=== PATIENT | female | born 1970 | race Caucasian/White ===

== ENCOUNTER 2020-05-13 05:07 | Inpatient (IN) | payer OTHER ==
[~2020-05-13 05:07] MED LIST: ASA PO; ASPIRIN EC81 MG PO; AZITHROMYCIN250 MG PO; CRANBERRY PO; CRANBERRY500 M3 PO; FLOMAX 0.4 MG0.4 MG PO; FLOMAX0.4 MG PO; HYDROCODON-ACE1 EAC1 PO; LISINOPRIL PO; LOPRESSOR25 MG PO; METFORMIN HCL500 MG PO; METFORMIN PO; METOPROLOL PO; NORCO 5-325 TA1 EACH PO; ONDANSETRON ODT4 MG PO/SL; PAXIL PO; PAXIL10 MG PO; PERCOCET 5-3251 EACH PO; PLAVIX PO; PLAVIX75 MG PO; PRAVACHOL20 MG PO; PREVASTATIN PO; VITAMIN D3 PO; XULTOPHY 100 UNI3 ML SC; ZESTRIL5 MG PO; ZOFRAN4 MG SL
[2020-05-13 06:22] LABS: BASOPHIL 0.9 % (0-2); EOSINOPHIL 2.9 % (0-5); HCT 41.4 % (37.0-47.0); HGB 15.5 g/dl (12.5-16.0); LYMPHOCYTE 21.5 % (15-48); MCH 29.7 pg (25.0-31.0); MCHC 37.4 g/dL (32.0-36.0); MCV 79.3 fL (78.0-100.0); MONOCYTE 7.7 % (0-12); MPV 11.2 fL (6.0-9.5); NEUTROPHIL 66.1 % (41-80); NRBC 0; PLT 253 K/uL (150-400); RBC 5.22 M/uL (4.20-5.40); RDW 13.7 % (11.5-14.0); WBC 11.6 K/uL (4.0-10.5)
[2020-05-13 06:57] LABS: ALBUMIN 2.9 g/dL (3.4-5.0); ALKALINE PHOSHATASE 232 U/L (46-116); ALT <6 U/L (14-59); BILIRUBIN - TOTAL 1.1 mg/dL (0.2-1.0); BUN 11 mg/dL (7-18); BUN/CREAT RATIO (CALC) 26.2 RATIO; CHLORIDE 91 mmol/L (98-107); CO2 (BICARBONATE) 17 mmol/L (21-32); CREATININE 0.42 mg/dL (0.51-0.95); GLOBULIN (CALCULATION) 4.4 g/dL; LIPASE >2250 U/L (73-393); POTASSIUM 3.9 mmol/L (3.5-5.1); TOTAL PROTEIN 7.3 g/dL (6.4-8.2)
[2020-05-13 06:58] LABS: GLUCOSE 538 mg/dL (74-106)
[2020-05-13 07:00] LABS: AST <5 U/L (15-37)
[2020-05-13 07:03] LABS: CORONAVIRUS 2019 SARS-COV-2 NEGATIVE (NEGATIVE); INFLUENZA A NAA NEGATIVE (NEGATIVE)
[2020-05-13 11:49] LABS: BILIRUBIN NEGATIVE (NEGATIVE); BLOOD NEGATIVE Ery/uL (NEGATIVE); CLARITY CLEAR (CLEAR); COLOR YELLOW (YELLOW); GLUCOSE (U) 2+ mg/dL (NORMAL); LEUKOCYTES NEGATIVE Leu/uL (NEGATIVE); NITRITE NEGATIVE (NEGATIVE); PROTEIN NEGATIVE (NEGATIVE); SPECIFIC GRAVITY 1.025 (1.001-1.030); UROBILINOGEN 0.2 mg/dL (0.2-1.0)
[2020-05-13 11:58] LABS: CHOLESTEROL 409 mg/dL (<200); HDL 26 mg/dL (40-60); LDL - DIRECT 60 mg/dL (<100); TRIGLYCERIDES >2000 mg/dL (<150)
[2020-05-13] MEDS ORDERED: NORVASC5 MG PO (12:14)
[2020-05-13] MEDS ORDERED: COZAAR50 MG PO (12:15)
[2020-05-13] MEDS ORDERED: TRAZODONE 50MG50 MG PO (12:16)
[2020-05-14 05:38] LABS: HCT 41.4 % (37.0-47.0); HGB 14.1 g/dl (12.5-16.0); MCH 27.5 pg (25.0-31.0); MCHC 34.1 g/dL (32.0-36.0); MCV 80.7 fL (78.0-100.0); MPV 11.6 fL (6.0-9.5); RBC 5.13 M/uL (4.20-5.40); WBC 7.2 K/uL (4.0-10.5)
[2020-05-14 05:59] LABS: BUN/CREAT RATIO (CALC) 21.3 RATIO; CREATININE 0.47 mg/dL (0.51-0.95); POTASSIUM 4.6 mmol/L (3.5-5.1)
--- NOTE | 2020-05-14 07:37 | NUR ---
ORIENTATING SHELBY NELSON, VERIFES ALL DOCUMENTATION IS TRUE AND ACCURATE. DID ASSESSMENTS AND MEDICATION PASSES WITH SHELBY NELSON
[2020-05-15 14:46] LABS: CHOLESTEROL 374 mg/dL (<200); HDL 21 mg/dL (40-60); LDL - DIRECT 86 mg/dL (<100); LIPASE 2013 U/L (73-393); TRIGLYCERIDES 941 mg/dL (<150)
[2020-05-16 05:46] LABS: HCT 37.2 % (37.0-47.0); HGB 12.3 g/dl (12.5-16.0); MCH 26.4 pg (25.0-31.0); MCHC 33.1 g/dL (32.0-36.0); MCV 79.8 fL (78.0-100.0); RBC 4.66 M/uL (4.20-5.40); RDW 14.4 % (11.5-14.0); WBC 6.1 K/uL (4.0-10.5)
[2020-05-16 06:18] LABS: CREATININE 0.45 mg/dL (0.51-0.95); POTASSIUM 3.1 mmol/L (3.5-5.1)
--- NOTE | 2020-05-16 18:00 | NUR ---
DR CAMERON SAID IT WAS OK TO DO Q2HRS ON FINGER STICKS
[2020-05-17 05:34] LABS: BASOPHIL 0.6 % (0-2); EOSINOPHIL 0.9 % (0-5); HCT 37.7 % (37.0-47.0); HGB 12.5 g/dl (12.5-16.0); LYMPHOCYTE 15.8 % (15-48); MCHC 33.2 g/dL (32.0-36.0); MCV 78.5 fL (78.0-100.0); MONOCYTE 12.6 % (0-12); MPV 10.6 fL (6.0-9.5); NEUTROPHIL 68.8 % (41-80); NRBC 0; PLT 229 K/uL (150-400); RDW 14.2 % (11.5-14.0); WBC 5.3 K/uL (4.0-10.5)
[2020-05-17 05:55] LABS: ALBUMIN 1.9 g/dL (3.4-5.0); BILIRUBIN - TOTAL 0.3 mg/dL (0.2-1.0); CREATININE 0.47 mg/dL (0.51-0.95); GLOBULIN (CALCULATION) 4.6 g/dL; POTASSIUM 2.7 mmol/L (3.5-5.1); TOTAL PROTEIN 6.5 g/dL (6.4-8.2)
[2020-05-17] MEDS ORDERED: LOPID600 MG PO (10:50)
[2020-05-17] MEDS ORDERED: FENOFIBRATE160 MG PO (10:50)
[2020-05-17] MEDS ORDERED: PRAVACHOL20 MG PO (10:51)
--- NOTE | 2020-05-17 11:56 | NUR ---
PATIENT TRANSFERRED BY CHAIR TO 216. REPORT GIVEN TO
[2020-05-18 05:50] LABS: BASOPHIL 0.7 % (0-2); EOSINOPHIL 0.8 % (0-5); HCT 40.7 % (37.0-47.0); HGB 13.2 g/dl (12.5-16.0); LYMPHOCYTE 20.1 % (15-48); MCH 26.1 pg (25.0-31.0); MCHC 32.4 g/dL (32.0-36.0); MCV 80.6 fL (78.0-100.0); MONOCYTE 12.1 % (0-12); MPV 10.5 fL (6.0-9.5); NEUTROPHIL 63.8 % (41-80); NRBC 0; PLT 255 K/uL (150-400); RBC 5.05 M/uL (4.20-5.40); RDW 14.3 % (11.5-14.0); WBC 7.1 K/uL (4.0-10.5)
[2020-05-18 06:04] LABS: BUN/CREAT RATIO (CALC) 18.6 RATIO; CREATININE 0.59 mg/dL (0.51-0.95); POTASSIUM 3.4 mmol/L (3.5-5.1)
[2020-05-18] MEDS ORDERED: LANTUS SOL100 UNIT/1 SC (08:11)
[2020-05-18] MEDS ORDERED: INSULIN AS100 UNIT/3 SC (08:11)
[2020-05-18] MEDS ORDERED: GLUCOSE TEST S1 EACH XX (08:16)
[2020-05-18] MEDS ORDERED: NORCO 5-325 TA1 EACH PO (08:18)
== END 2020-05-18 11:57 | disposition home or self-care (01) | DRG 439 ==
LOC: FER 05:07 → FMS 08:27 → FICU 08:27 → FMS 05-17 07:31
PROVIDERS: Allergy & Immunology Allergy; Emergency Medicine Emergency Medical Services; ADMIT Hospitalist
DX: K85.90 Acute pancreatitis without necrosis or infection, unspecified (principal); E87.1 Hypo-osmolality and hyponatremia; E11.65 Type 2 diabetes mellitus with hyperglycemia; E78.5 Hyperlipidemia, unspecified; Z20.822 Contact with and (suspected) exposure to COVID-19; I25.10 Atherosclerotic heart disease of native coronary artery without angina pectoris; E87.6 Hypokalemia; E78.1 Pure hyperglyceridemia; Z79.4 Long term (current) use of insulin; I25.2 Old myocardial infarction; Z95.5 Presence of coronary angioplasty implant and graft; Z90.710 Acquired absence of both cervix and uterus; Z90.49 Acquired absence of other specified parts of digestive tract; Z79.82 Long term (current) use of aspirin; Z79.01 Long term (current) use of anticoagulants
CPT/HCPCS: 36415; 74181; 80048; 80053; 80061; 81003; 82962; 83605; 83690; 84132; 84145; 84478; 84484; 85025; J1170; J1650; J2405; J3480; J7030; J7070; Q9967; U0002